=== PATIENT | male | born 1965 | race American Indian/Alaskan Native ===

== ENCOUNTER 2021-09-22 17:39 | Emergency (ER) | payer MEDICAID ==
[2021-09-22 17:49] VITALS: BP 109/58
[2021-09-22] MEDS ORDERED: ACETAMINOPHEN 500 MG TAB PO ONE (21:58)
[2021-09-22] MEDS ORDERED: IBUPROFEN 600 MG TAB PO ONE (21:58)
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
== END 2021-09-22 23:52 | disposition home or self-care (01) ==
LOC: ED 17:39
DX: M62.838 Other muscle spasm (principal); M62.830 Muscle spasm of back; V89.2XXA Person injured in unspecified motor-vehicle accident, traffic, initial encounter; Y93.89 Activity, other specified; Y92.89 Other specified places as the place of occurrence of the external cause; Y99.8 Other external cause status
CPT/HCPCS: 72100; 72125; 99284